=== PATIENT | female | born 1990 | race Caucasian/White ===

== ENCOUNTER 2016-07-30 06:57 | Inpatient (IN) | payer OTHER ==
[2016-07-30] VITALS (61 sets, daily range): BP systolic 101–124; BP diastolic 66–86
[~2016-07-30] VITALS: Ht 167.6 cm; Wt 94.8 kg
[~2016-07-30 06:57] MED LIST: CETI10TA20 PO; IBUP-1780 PO; OXYC-202 PO; PREN1TAB76 PO
--- NOTE | 2016-07-30 07:08 | History & Physical ---
History and Physical Date Seen by Provider: Jul 30, 2016 Time Seen by Provider: 07:06 this patient is a 25-year-old A2 white female with an EDC of 6 2217. She had been followed in clinic for polyhydramnios. She is now 38 weeks gestation. She is admitted now for induction of labor secondary to her polyhydramnios. GBS culture done after 35 weeks gestation was negative. Patient denies rupture membranes or bleeding. She does have some issues with air hunger. She has occasional contractions and feels baby moving frequently. Allergies are to iodine causes a rash Medications are vitamins/folic acid Past medical history, past surgical history, obstetric history, family history, and social histories are per the antepartum record HEENT exam is normal Neck is supple no lymphadenopathy no thyromegaly Abdomen is gravid soft nontender nondistended Extremities show no clubbing or cyanosis. There is no Homans sign. There is some pretibial pitting edema that is considered normal. Pelvic exam is pending Lab work is pending Assessment and plan 38 week gestation with polyhydramnios admitted now for Pitocin induction of labor. Risk complications recovery and follow-up and potential for delivery involvement fully discussed. Patient accepts those risks and is ready to proceed. This patient is for vaginal delivery however plans preparations are in place for if needed. 38 week intrauterine with polyhydramnios Allergies and Home Medications Allergies Coded Allergies: iodine (Verified Allergy, Intermediate, RASH FROM TOUCHING FISH, 07/30/15) Home Medications Cetirizine HCl 10 Mg Tablet, 10 MG PO DAILY, (Reported) Ibuprofen 800 Mg Tablet, 800 MG PO Q4H PRN for PAIN, #60 Prescribed by: MOSHE GREY on 08/02/15 1159 Oxycodone HCl/Acetaminophen 1 Each Tablet, 1-2 TAB PO Q4H PRN for PAIN, #60 Prescribed by: MOSHE GREY on 08/02/15 1159 Vit W-Ca,Fe,FA(<1 mg) 1 Each Tablet, 1 EACH PO DAILY, (Reported) MOSHE BARROW MD Jul 30, 2016 7:08 am
[2016-07-30] MEDS: D5 LR IV SOLUTION 1,000 ML IV SCH ×2 (07:30→15:34)
[2016-07-30] MEDS: OXYTOCIN/NORMAL SALINE 500 ML IV SCH (07:30)
[2016-07-30 07:53] LABS: BASOPHILS % (AUTO) 0 % (0-10); EOSINOPHILS # (AUTO) 0.3 10^3/uL (0.0-0.3); EOSINOPHILS % (AUTO) 3 % (0-10); LYMPHOCYTES # (AUTO) 1.2 X 10^3 (1.0-4.0); LYMPHOCYTES % (AUTO) 15 % (12-44); MEAN CORPUSCULAR HEMOGLOBIN 32 PG (25-34); MEAN CORPUSCULAR HGB CONC 35 G/DL (32-36); MEAN CORPUSCULAR VOLUME 91 FL (80-99); MEAN PLATELET VOLUME 10.9 FL (7.4-10.4); MONOCYTES # (AUTO) 0.7 X 10^3 (0.0-1.0); MONOCYTES % (AUTO) 9 % (0-12); NEUTROPHILS # (AUTO) 5.9 X 10^3 (1.8-7.8); NEUTROPHILS % (AUTO) 73 % (42-75); PLATELET COUNT 192 10^3/uL (130-400); RED BLOOD COUNT 4.35 10^6/uL (4.35-5.85); WHITE BLOOD COUNT 8.1 10^3/uL (4.3-11.0)
[2016-07-30] MEDS ORDERED: LACTATED RINGERS 1,000 ML IV ONE ×3 (13:01→21:21)
[2016-07-30] MEDS ORDERED: SUFENTA 0.6MCG/ML BUPIVA 0.125 100 ML ONE (13:06)
[2016-07-30] MEDS ORDERED: BUPIVACAINE 0.25% 30 ML (SENSORCAINE) VIAL ONE ×2 (13:41→21:33)
[2016-07-30] MEDS ORDERED: LIDOCAINE PF 2% 10 ML (XYLOCAINE) AMP ONE ×2 (13:41→21:33)
[2016-07-30] MEDS ORDERED: fentaNYL INJECTION 100 MCG/2 ML AMP ONE ×2 (13:41→21:33)
[2016-07-30] MEDS ORDERED: METOCLOPRAMIDE INJ 10 MG/2 ML (REGLAN) IV PRN (14:30)
[2016-07-30] MEDS ORDERED: NALOXONE 0.4 MG/ML 1 ML (NARCAN) VIAL IV PRN ×2 (14:30)
[2016-07-30] MEDS ORDERED: diphenhydrAMINE 50 MG/ML INJ (BENADRYL) IV PRN (14:30)
[2016-07-30] MEDS ORDERED: EPIDURAL (SUFENTA 0.6MCG/ML BUPIVA 0.125%) 100 ML BAG EPI SCH (14:30)
[2016-07-30] MEDS ORDERED: ONDANSETRON 4 MG/2 ML (SDV) Z0FRAN IV PRN (14:30)
[2016-07-30] MEDS ORDERED: OXYTOCIN/NORMAL SALINE 500 ML IV SCH (21:20)
--- NOTE | 2016-07-30 21:25 | Progress Note-Pre Operative ---
Pre-Operative Progress Note H&P Reviewed The H&P was reviewed, patient examined and no changes noted. Date Seen by Provider: Jul 30, 2016 Time Seen by Provider: 21:25 Date H&P Reviewed: Jul 30, 2016 Time H&P Reviewed: 21:25 Pre-Operative Diagnosis: T IUPIAL/CPD/nonreassuring heart rate pattern MOSHE BARROW MD Jul 30, 2016 9:25 pm
[2016-07-30] MEDS ORDERED: D5 LR IV SOLUTION 1,000 ML IV ONE (21:28)
--- NOTE | 2016-07-30 21:29 | Progress Note-Standard ---
Standard Progress Note Progress Notes/Assess & Plan Date Seen by Provider: Jul 30, 2016 Time Seen by Provider: 21:26 Progress/Assessment & Plan patient has been laboring since a.m. on Pitocin. Pitocin is at 38 mU/m. She had progressed to slowly to 5 cm Steve now for between 2 and 3 hours. The presenting part is at the -1 to -2 station and has showed little descent throughout the day. The presenting part is resting on the pelvic inlet. There is no pressure on the cervix itself. There is significant notable pressure on the bladder and pubic bone with contractions. The fetus began showing deep variable D cells. The Pitocin was turned off and the fetuses heart rate recovered. Recheck of the cervix shows a patient is around 5 cm there is some edema now in the vagina and cervix. Again there is been no significant descent since this morning. She edges made to forego further attempts at induction with Pitocin in favor of proceeding with a delivery. The patient understands that with her lack of progress and the heart rate pattern showing indications of compromise she accepts and agrees with the plan to proceed with a delivery. Surgical risk complication recovering follow-up all been discussed and she has had all of her questions answered. Vital Signs Date Time Temp Pulse Resp B/P (MAP) Pulse Ox O2 Delivery O2 Flow Rate FiO2 07/30/16 19:20 77 18 116/80 99 07/30/16 19:05 77 18 115/85 98 07/30/16 18:50 82 18 106/74 98 07/30/16 18:35 71 20 114/77 98 07/30/16 18:20 76 20 115/73 98 07/30/16 18:05 85 20 108/78 99 07/30/16 17:55 73 18 120/73 96 07/30/16 17:45 76 18 124/67 98 07/30/16 17:35 72 18 115/76 99 07/30/16 17:25 72 18 114/73 97 07/30/16 17:05 75 18 113/74 97 07/30/16 16:45 76 18 111/74 99 07/30/16 16:30 75 18 101/68 97 07/30/16 16:15 78 18 106/75 96 07/30/16 16:00 69 18 110/66 96 07/30/16 15:45 69 18 110/75 98 07/30/16 15:30 83 18 114/72 99 07/30/16 15:15 99.3 81 18 107/69 99 07/30/16 15:00 77 18 111/73 99 07/30/16 14:50 85 16 108/73 99 07/30/16 14:45 85 16 110/71 98 07/30/16 14:40 85 16 109/76 98 07/30/16 14:35 87 16 119/74 100 07/30/16 14:30 85 16 108/76 100 07/30/16 14:25 85 18 121/76 07/30/16 14:15 86 18 118/82 07/30/16 14:10 91 18 124/86 07/30/16 13:55 87 18 120/84 07/30/16 13:40 75 18 112/77 07/30/16 13:25 76 18 115/75 07/30/16 13:10 78 18 115/77 07/30/16 12:55 80 18 108/73 07/30/16 12:40 80 18 110/71 07/30/16 12:25 80 18 110/71 07/30/16 12:10 72 18 111/78 07/30/16 11:55 83 18 116/77 07/30/16 11:40 82 18 114/75 07/30/16 11:25 75 18 114/76 07/30/16 11:10 69 20 112/82 07/30/16 10:55 81 18 113/66 07/30/16 10:40 77 18 121/76 07/30/16 10:25 75 18 116/76 07/30/16 10:10 74 18 113/72 07/30/16 09:55 78 18 111/76 07/30/16 09:40 75 20 107/79 07/30/16 09:25 75 20 107/79 07/30/16 09:10 77 20 122/70 07/30/16 08:55 75 20 119/77 07/30/16 08:40 75 20 119/77 17 08:25 75 20 120/82 17 08:10 94 20 117/83 07/30/16 07:55 77 20 111/76 07/30/16 07:10 80 20 122/86 Assessment and plan term in labor with failure to progress/CPD/ polyhydramnios nonreassuring heart rate pattern. Surgical crews and anesthesia have been notified of transverse delivery. Pitocin was turned off allowing uterus to rest in the interim MOSHE BARROW MD Jul 30, 2016 9:29 pm
[2016-07-30] MEDS ORDERED: FAMOTIDINE 20MG/2ML IV (PEPCID) IV ONE (21:30)
[2016-07-30] MEDS ORDERED: ceFAZolin INJECTION 2,000 MG in NS (IVPB) 50 ML IV ONE (21:30)
[2016-07-30] MEDS ORDERED: PROMETHAZINE INJ 25 MG/ML (PHENERGAN) AMP IM PRN (21:30)
[2016-07-30] MEDS ORDERED: MEASLES,MUMPS,RUBELLA 1 EA INJ SC ONE (21:30)
[2016-07-30] MEDS ORDERED: TETANUS,DIPTH,PERTUSS P/F (BOOSTRIX) 0.5 ML VIAL IM ONE (21:30)
[2016-07-30] MEDS ORDERED: CITRIC ACID/SOB CIT (BICITRA) 30 ML UDC PO ONE (21:30)
[2016-07-30] MEDS ORDERED: MEPERIDINE (DEMEROL) INJ 100 MG/ML IM PRN (21:30)
[2016-07-30] MEDS ORDERED: METOCLOPRAMIDE INJ 10 MG/2 ML (REGLAN) IV ONE (21:30)
[2016-07-30] MEDS ORDERED: metroNIDAZOLE 500MG/100ML IVPB 100 ML IV ONE (21:30)
[2016-07-30] MEDS ORDERED: CATHETER FLUSH 10 ML SYR IV PRN (21:30)
[2016-07-30] MEDS ORDERED: OXYTOCIN/NORMAL SALINE 1,000 ML IV ONE (21:49)
--- NOTE | 2016-07-30 22:48 | Progress Note-Post Operative ---
Post-Operative Progess Note Surgeon (s)/Bilingual Sales Consultant (s) Surgeon MOSHE BARROW MD Bilingual Sales Consultant: Heather - RN Pre-Operative Diagnosis T IUPIAL/CPD/nonreassuring heart rate pattern Post-Operative Diagnosis same with persistent OP position Procedure & Operative Findings Date of Procedure 07/30/16 Procedure Performed/Findings as above - persistent OP Anesthesia Type Epidural Estimated Blood Loss Estimated blood loss (mL): 800 cc Specimens/Packing Specimens Removed baby - placenta Packing: none MOSHE BARROW MD Jul 30, 2016 10:48 pm
[2016-07-31] VITALS: BP 117/78
[2016-07-31] MEDS: KETOROLAC 30 MG/ML VIAL IVP SCH ×4 (00:17→18:56)
[2016-07-31 04:00] VITALS: BP 116/79
--- NOTE | 2016-07-31 07:00 | OPERATIVE REPORT ---
DATE OF SERVICE: 07/30/2016 PREOPERATIVE DIAGNOSES: Failure to progress in labor, cephalopelvic disproportion, nonreassuring heart rate pattern and polyhydramnios. POSTOPERATIVE DIAGNOSES: Failure to progress in labor, cephalopelvic disproportion, nonreassuring heart rate pattern and polyhydramnios with persistent occiput posterior position. OPERATIVE PROCEDURE: Primary low-transverse delivery with viable male with Apgars of 7 and 8 at 1 and 5 minutes respectively, weight was 6 pounds 13 ounces, time of 2212 and a cord arterial blood gas of 7.3. OPERATIVE DESCRIPTION: With the patient in the supine position under satisfactory epidural anesthesia, she was prepped and draped in the usual fashion for abdominal surgery. Kruger catheter had been placed in the urinary bladder during labor that was left to dependent drainage. A Pfannenstiel incision was made through the skin with a scalpel. The patient's abdomen was then entered in the usual manner. Bladder retractor placed in position and a clean scalpel used to make a 4 cm hysterotomy incision transversely across the lower uterine segment that was extended by blunt dissection as well. Membranes were ruptured in the process releasing a small amount of clear fluid. The incision was extended bluntly and then Heaton forceps were applied to facilitate the delivery of a viable male infant via the uterine incision. The brow was above the pelvic brim. Again the position was straight OP. Heaton forceps were applied to facilitate the delivery. The delivery was atraumatic. The infant was bulb suctioned on delivery of the head and again on completion of the delivery. The umbilical cord was doubly clamped and cut and the passed to the pediatric nurse in attendance for the delivery. Cord bloods were obtained including the arterial blood gas. The placenta was then delivered spontaneously Rashid. It was normal with 3-vessel cord. The uterus at this point was exteriorized and then compressed to control bleeding. While the placenta was suctioned removing about one-eighth of the placenta and a portion of umbilical cord for a permanent section for pathology as the patient had requested to have a placenta return to her otherwise. Attention was then turned back to the uterus. The interior of the uterus was wiped clean with a wet laparotomy sponge. The uterine incision was closed with a running lock suture of 2-0 Vicryl. Two additional sutures of [id number] 2-0 Vicryl were placed to affect complete hemostasis. With hemostasis complete, the uterus was returned to the abdominal cavity. The uterus was a heart shaped uterus with a bit of a septum. It was quite wide and bulky. It was returned to the abdominal cavity without incident and then the abdominal cavity was cleaned of all blood clot and debris. With sponge and needle counts correct and hemostasis assured at this point, the anterior peritoneum was closed with a running suture of 2-0 Vicryl. The rectus muscles were closed with that suture as well. The rectus fascia was closed with 2-0 Vicryl. The subcutaneous tissue was closed with 2-0 Vicryl and then the skin was stapled. Sponge and needle counts were correct at the end of the procedure. Estimated blood loss for procedure was around 800 mL. The patient tolerated the procedure well and was transferred to the recovery room in stable condition. The infant had been taken stable to the full-term nursery under the care of the pediatric nurse. Job ID: [id number] DocumentID: [id number] Dictated Date: 07/30/2016 22:45:45 Rn Er Date: 07/31/2016 04:26:48 Dictated By: MOSHE BARROW MD MTDD
--- NOTE | 2016-07-31 07:12 | Progress Note-Standard ---
Standard Progress Note Progress Notes/Assess & Plan Date Seen by Provider: Jul 31, 2016 Time Seen by Provider: 07:10 Progress/Assessment & Plan patient has been laboring since a.m. on Pitocin. Pitocin is at 38 mU/m. She had progressed to slowly to 5 cm Steve now for between 2 and 3 hours. The presenting part is at the -1 to -2 station and has showed little descent throughout the day. The presenting part is resting on the pelvic inlet. There is no pressure on the cervix itself. There is significant notable pressure on the bladder and pubic bone with contractions. The fetus began showing deep variable D cells. The Pitocin was turned off and the fetuses heart rate recovered. Recheck of the cervix shows a patient is around 5 cm there is some edema now in the vagina and cervix. Again there is been no significant descent since this morning. She edges made to forego further attempts at induction with Pitocin in favor of proceeding with a delivery. The patient understands that with her lack of progress and the heart rate pattern showing indications of compromise she accepts and agrees with the plan to proceed with a delivery. Surgical risk complication recovering follow-up all been discussed and she has had all of her questions answered. Vital Signs Date Time Temp Pulse Resp B/P (MAP) Pulse Ox O2 Delivery O2 Flow Rate FiO2 07/30/16 19:20 77 18 116/80 99 07/30/16 19:05 77 18 115/85 98 07/30/16 18:50 82 18 106/74 98 07/30/16 18:35 71 20 114/77 98 07/30/16 18:20 76 20 115/73 98 07/30/16 18:05 85 20 108/78 99 07/30/16 17:55 73 18 120/73 96 07/30/16 17:45 76 18 124/67 98 07/30/16 17:35 72 18 115/76 99 07/30/16 17:25 72 18 114/73 97 07/30/16 17:05 75 18 113/74 97 07/30/16 16:45 76 18 111/74 99 07/30/16 16:30 75 18 101/68 97 07/30/16 16:15 78 18 106/75 96 07/30/16 16:00 69 18 110/66 96 07/30/16 15:45 69 18 110/75 98 07/30/16 15:30 83 18 114/72 99 07/30/16 15:15 99.3 81 18 107/69 99 07/30/16 15:00 77 18 111/73 99 07/30/16 14:50 85 16 108/73 99 07/30/16 14:45 85 16 110/71 98 07/30/16 14:40 85 16 109/76 98 07/30/16 14:35 87 16 119/74 100 07/30/16 14:30 85 16 108/76 100 07/30/16 14:25 85 18 121/76 07/30/16 14:15 86 18 118/82 07/30/16 14:10 91 18 124/86 07/30/16 13:55 87 18 120/84 07/30/16 13:40 75 18 112/77 07/30/16 13:25 76 18 115/75 07/30/16 13:10 78 18 115/77 07/30/16 12:55 80 18 108/73 07/30/16 12:40 80 18 110/71 07/30/16 12:25 80 18 110/71 07/30/16 12:10 72 18 111/78 07/30/16 11:55 83 18 116/77 07/30/16 11:40 82 18 114/75 07/30/16 11:25 75 18 114/76 07/30/16 11:10 69 20 112/82 07/30/16 10:55 81 18 113/66 07/30/16 10:40 77 18 121/76 07/30/16 10:25 75 18 116/76 07/30/16 10:10 74 18 113/72 07/30/16 09:55 78 18 111/76 07/30/16 09:40 75 20 107/79 07/30/16 09:25 75 20 107/79 07/30/16 09:10 77 20 122/70 07/30/16 08:55 75 20 119/77 07/30/16 08:40 75 20 119/77 17 08:25 75 20 120/82 17 08:10 94 20 117/83 07/30/16 07:55 77 20 111/76 07/30/16 07:10 80 20 122/86 Assessment and plan term in labor with failure to progress/CPD/ polyhydramnios nonreassuring heart rate pattern. Surgical crews and anesthesia have been notified of transverse delivery. Pitocin was turned off allowing uterus to rest in the interim July 31, 2016 Patient is without complaint. She is ambulating, voiding, total bilirubin, denies chest pain, denies shortness of breath, denies headache, denies nausea vomiting, patient has good pain control. Vital Signs Date Time Temp Pulse Resp B/P (MAP) Pulse Ox O2 Delivery O2 Flow Rate FiO2 07/31/16 04:00 97.5 83 18 116/79 98 07/31/16 00:00 99.5 89 18 117/78 99 07/30/16 21:35 90 20 116/84 98 07/30/16 21:20 136 20 103/69 97 07/30/16 20:50 77 20 108/74 99 07/30/16 20:35 86 20 109/73 96 07/30/16 20:20 85 20 118/84 97 07/30/16 20:05 75 20 113/75 98 07/30/16 19:50 83 20 114/78 99 07/30/16 19:35 99.3 78 20 110/75 97 07/30/16 19:20 77 18 116/80 99 07/30/16 19:05 77 18 115/85 98 07/30/16 18:50 82 18 106/74 98 07/30/16 18:35 71 20 114/77 98 07/30/16 18:20 76 20 115/73 98 07/30/16 18:05 85 20 108/78 99 07/30/16 17:55 73 18 120/73 96 07/30/16 17:45 76 18 124/67 98 07/30/16 17:35 72 18 115/76 99 07/30/16 17:25 72 18 114/73 97 07/30/16 17:05 75 18 113/74 97 07/30/16 16:45 76 18 111/74 99 07/30/16 16:30 75 18 101/68 97 07/30/16 16:15 78 18 106/75 96 07/30/16 16:00 69 18 110/66 96 07/30/16 15:45 69 18 110/75 98 07/30/16 15:30 83 18 114/72 99 07/30/16 15:15 99.3 81 18 107/69 99 07/30/16 15:00 77 18 111/73 99 07/30/16 14:50 85 16 108/73 99 07/30/16 14:45 85 16 110/71 98 07/30/16 14:40 85 16 109/76 98 07/30/16 14:35 87 16 119/74 100 07/30/16 14:30 85 16 108/76 100 07/30/16 14:25 85 18 121/76 07/30/16 14:15 86 18 118/82 07/30/16 14:10 91 18 124/86 07/30/16 13:55 87 18 120/84 07/30/16 13:40 75 18 112/77 07/30/16 13:25 76 18 115/75 07/30/16 13:10 78 18 115/77 07/30/16 12:55 80 18 108/73 07/30/16 12:40 80 18 110/71 07/30/16 12:25 80 18 110/71 07/30/16 12:10 72 18 111/78 07/30/16 11:55 83 18 116/77 07/30/16 11:40 82 18 114/75 07/30/16 11:25 75 18 114/76 07/30/16 11:10 69 20 112/82 07/30/16 10:55 81 18 113/66 07/30/16 10:40 77 18 121/76 07/30/16 10:25 75 18 116/76 07/30/16 10:10 74 18 113/72 07/30/16 09:55 78 18 111/76 07/30/16 09:40 75 20 107/79 07/30/16 09:25 75 20 107/79 07/30/16 09:10 77 20 122/70 07/30/16 08:55 75 20 119/77 07/30/16 08:40 75 20 119/77 07/30/16 08:25 75 20 120/82 07/30/16 08:10 94 20 117/83 07/30/16 07:55 77 20 111/76 I & O 07/31/16 07:00 Intake Total 2850 ml Output Total 350 ml Balance 2500 ml vital signs are stable. Patient is afebrile. Fundus is firm below the umbilicus and nontender. Incision is clean dry and intact. Bowel sounds are present. Extremities show no clubbing or cyanosis. There is no Homans sign. There is some pretibial pitting edema that is normal. Assessment and plan postoperative day number 1 status post primary C- section doing well. Plan is for routine convalescence care MOSHE BARROW MD Jul 31, 2016 7:12 am
[2016-07-31] MEDS ORDERED: IBUP-1780 PO (07:24)
[2016-07-31] MEDS ORDERED: OXYC-465 PO (07:24)
[2016-07-31] MEDS ORDERED: DOCU100C37 PO (07:24)
--- NOTE | 2016-07-31 07:25 | Discharge Instructions ---
Discharge Instructions Discharge Medications New, Converted or Re-Newed RX: RX on Chart Patient Instructions Patient Instructions: as directed Return to The Hospital For: as directed Activity & Diet Discharge Diet: No Restrictions Activity as Tolerated: No Orders-Post D/C & Referrals Follow Up Appt: RTC 1 week for incision check. Call to make follow up appt. for patient in 4 weeks. Wound Care: Remove dale, apply benzoin and steri strips. Activity Per routine post instructions. Please call in RX to patient pharmacy. Diet as tolerated Patient may shower or tub bathe as desired. Continue home meds MOSHE BARROW MD Jul 31, 2016 7:25 am
[2016-07-31 08:00] VITALS: BP 120/69
[2016-07-31] MEDS: DOCUSATE SODIUM 100 MG (COLACE) CAP PO SCH ×2 (09:42→20:38)
[2016-07-31] MEDS: oxyCODONE/APAP 10/325MG (PERCOCET 10) TABLET PO PRN ×3 (09:43→20:39)
[2016-07-31 12:30] VITALS: BP 111/76
--- NOTE | 2016-07-31 14:21 | Anesthesia-Regional Post-Op ---
Regional Patient Condition Mental Status: Alert, Oriented x3 Circulation: Same as Pre-Op Headache: Absent Sensation: Full Recovery Motor Block: Absent Post Op Complications Complications None Follow Up Care/Instructions Patient Instructions None needed. Anesthesia/Patient Condition Patient is doing well, no complaints, stable vital signs, no apparent adverse anesthesia problems. KAITLYNN LONG DO Jul 31, 2016 14:21
[2016-07-31] MEDS: SIMETHICONE 80 MG (MYLICON) CHEW PO SCH ×2 (17:00→20:38)
[2016-07-31 20:00] VITALS: BP 105/64
[2016-08-01] MEDS: IBUPROFEN 800 MG (MOTRIN) TAB PO SCH ×3 (00:19→14:08)
[2016-08-01 00:34] VITALS: BP 95/64
[2016-08-01] MEDS: OXYTOCIN/NORMAL SALINE 500 ML IV SCH (07:36)
[2016-08-01] MEDS: D5 LR IV SOLUTION 1,000 ML IV SCH (07:37)
[2016-08-01] MEDS: SIMETHICONE 80 MG (MYLICON) CHEW PO SCH ×2 (07:43→14:09)
[2016-08-01] MEDS: DOCUSATE SODIUM 100 MG (COLACE) CAP PO SCH (07:43)
--- NOTE | 2016-08-01 08:01 | Progress Note-Standard ---
Standard Progress Note Progress Notes/Assess & Plan Date Seen by Provider: Aug 01, 2016 Time Seen by Provider: 08:00 Progress/Assessment & Plan patient has been laboring since a.m. on Pitocin. Pitocin is at 38 mU/m. She had progressed to slowly to 5 cm Steve now for between 2 and 3 hours. The presenting part is at the -1 to -2 station and has showed little descent throughout the day. The presenting part is resting on the pelvic inlet. There is no pressure on the cervix itself. There is significant notable pressure on the bladder and pubic bone with contractions. The fetus began showing deep variable D cells. The Pitocin was turned off and the fetuses heart rate recovered. Recheck of the cervix shows a patient is around 5 cm there is some edema now in the vagina and cervix. Again there is been no significant descent since this morning. She edges made to forego further attempts at induction with Pitocin in favor of proceeding with a delivery. The patient understands that with her lack of progress and the heart rate pattern showing indications of compromise she accepts and agrees with the plan to proceed with a delivery. Surgical risk complication recovering follow-up all been discussed and she has had all of her questions answered. Vital Signs Date Time Temp Pulse Resp B/P (MAP) Pulse Ox O2 Delivery O2 Flow Rate FiO2 07/30/16 19:20 77 18 116/80 99 07/30/16 19:05 77 18 115/85 98 07/30/16 18:50 82 18 106/74 98 07/30/16 18:35 71 20 114/77 98 07/30/16 18:20 76 20 115/73 98 07/30/16 18:05 85 20 108/78 99 07/30/16 17:55 73 18 120/73 96 07/30/16 17:45 76 18 124/67 98 07/30/16 17:35 72 18 115/76 99 07/30/16 17:25 72 18 114/73 97 07/30/16 17:05 75 18 113/74 97 07/30/16 16:45 76 18 111/74 99 07/30/16 16:30 75 18 101/68 97 07/30/16 16:15 78 18 106/75 96 07/30/16 16:00 69 18 110/66 96 07/30/16 15:45 69 18 110/75 98 07/30/16 15:30 83 18 114/72 99 07/30/16 15:15 99.3 81 18 107/69 99 07/30/16 15:00 77 18 111/73 99 07/30/16 14:50 85 16 108/73 99 07/30/16 14:45 85 16 110/71 98 07/30/16 14:40 85 16 109/76 98 07/30/16 14:35 87 16 119/74 100 07/30/16 14:30 85 16 108/76 100 07/30/16 14:25 85 18 121/76 07/30/16 14:15 86 18 118/82 07/30/16 14:10 91 18 124/86 07/30/16 13:55 87 18 120/84 07/30/16 13:40 75 18 112/77 07/30/16 13:25 76 18 115/75 07/30/16 13:10 78 18 115/77 07/30/16 12:55 80 18 108/73 07/30/16 12:40 80 18 110/71 07/30/16 12:25 80 18 110/71 07/30/16 12:10 72 18 111/78 07/30/16 11:55 83 18 116/77 07/30/16 11:40 82 18 114/75 07/30/16 11:25 75 18 114/76 07/30/16 11:10 69 20 112/82 07/30/16 10:55 81 18 113/66 07/30/16 10:40 77 18 121/76 07/30/16 10:25 75 18 116/76 07/30/16 10:10 74 18 113/72 07/30/16 09:55 78 18 111/76 07/30/16 09:40 75 20 107/79 07/30/16 09:25 75 20 107/79 07/30/16 09:10 77 20 122/70 07/30/16 08:55 75 20 119/77 07/30/16 08:40 75 20 119/77 17 08:25 75 20 120/82 17 08:10 94 20 117/83 07/30/16 07:55 77 20 111/76 07/30/16 07:10 80 20 122/86 Assessment and plan term in labor with failure to progress/CPD/ polyhydramnios nonreassuring heart rate pattern. Surgical crews and anesthesia have been notified of transverse delivery. Pitocin was turned off allowing uterus to rest in the interim July 31, 2016 Patient is without complaint. She is ambulating, voiding, total bilirubin, denies chest pain, denies shortness of breath, denies headache, denies nausea vomiting, patient has good pain control. Vital Signs Date Time Temp Pulse Resp B/P (MAP) Pulse Ox O2 Delivery O2 Flow Rate FiO2 07/31/16 04:00 97.5 83 18 116/79 98 07/31/16 00:00 99.5 89 18 117/78 99 07/30/16 21:35 90 20 116/84 98 07/30/16 21:20 136 20 103/69 97 07/30/16 20:50 77 20 108/74 99 07/30/16 20:35 86 20 109/73 96 07/30/16 20:20 85 20 118/84 97 07/30/16 20:05 75 20 113/75 98 07/30/16 19:50 83 20 114/78 99 07/30/16 19:35 99.3 78 20 110/75 97 07/30/16 19:20 77 18 116/80 99 07/30/16 19:05 77 18 115/85 98 07/30/16 18:50 82 18 106/74 98 07/30/16 18:35 71 20 114/77 98 07/30/16 18:20 76 20 115/73 98 07/30/16 18:05 85 20 108/78 99 07/30/16 17:55 73 18 120/73 96 07/30/16 17:45 76 18 124/67 98 07/30/16 17:35 72 18 115/76 99 07/30/16 17:25 72 18 114/73 97 07/30/16 17:05 75 18 113/74 97 07/30/16 16:45 76 18 111/74 99 07/30/16 16:30 75 18 101/68 97 07/30/16 16:15 78 18 106/75 96 07/30/16 16:00 69 18 110/66 96 07/30/16 15:45 69 18 110/75 98 07/30/16 15:30 83 18 114/72 99 07/30/16 15:15 99.3 81 18 107/69 99 07/30/16 15:00 77 18 111/73 99 07/30/16 14:50 85 16 108/73 99 07/30/16 14:45 85 16 110/71 98 07/30/16 14:40 85 16 109/76 98 07/30/16 14:35 87 16 119/74 100 07/30/16 14:30 85 16 108/76 100 07/30/16 14:25 85 18 121/76 07/30/16 14:15 86 18 118/82 07/30/16 14:10 91 18 124/86 07/30/16 13:55 87 18 120/84 07/30/16 13:40 75 18 112/77 07/30/16 13:25 76 18 115/75 07/30/16 13:10 78 18 115/77 07/30/16 12:55 80 18 108/73 07/30/16 12:40 80 18 110/71 07/30/16 12:25 80 18 110/71 07/30/16 12:10 72 18 111/78 07/30/16 11:55 83 18 116/77 07/30/16 11:40 82 18 114/75 07/30/16 11:25 75 18 114/76 07/30/16 11:10 69 20 112/82 07/30/16 10:55 81 18 113/66 07/30/16 10:40 77 18 121/76 07/30/16 10:25 75 18 116/76 07/30/16 10:10 74 18 113/72 07/30/16 09:55 78 18 111/76 07/30/16 09:40 75 20 107/79 07/30/16 09:25 75 20 107/79 07/30/16 09:10 77 20 122/70 07/30/16 08:55 75 20 119/77 07/30/16 08:40 75 20 119/77 07/30/16 08:25 75 20 120/82 07/30/16 08:10 94 20 117/83 07/30/16 07:55 77 20 111/76 I & O 07/31/16 07:00 Intake Total 2850 ml Output Total 350 ml Balance 2500 ml vital signs are stable. Patient is afebrile. Fundus is firm below the umbilicus and nontender. Incision is clean dry and intact. Bowel sounds are present. Extremities show no clubbing or cyanosis. There is no Homans sign. There is some pretibial pitting edema that is normal. Assessment and plan postoperative day number 1 status post primary C- section doing well. Plan is for routine convalescence care August 01, 2016 Patient is without complaint. She is ambulating, voiding, tolerating by mouth well, denies chest pain, denies shortness of breath, denies nausea vomiting, denies headache, has good pain control, and is requesting discharge home. Vital Signs Date Time Temp Pulse Resp B/P (MAP) Pulse Ox O2 Delivery O2 Flow Rate FiO2 08/01/16 00:34 96.8 78 18 95/64 97 Room Air 07/31/16 20:00 96.4 92 17 105/64 99 Room Air 07/31/16 12:30 98.5 72 20 111/76 Room Air I & O 08/01/16 07:00 Intake Total 1000 ml Balance 1000 ml vital signs are stable. Patient is afebrile. Abdomen is benign. The incision is clean dry and intact. Extremities show clubbing cyanosis. There is no Homans sign. There is some pretibial pitting edema that is normal. Assessment and plan postoperative day number 2 status post primary doing well. Plan is for discharge home today Final Diagnosis primary delivery MOSHE BARROW MD Aug 01, 2016 8:01 am
[2016-08-01 08:15] VITALS: BP 102/70
[2016-08-01] MEDS: oxyCODONE/APAP 10/325MG (PERCOCET 10) TABLET PO PRN (12:28)
[2016-08-01 12:32] VITALS: BP 114/78
[2016-08-01] MEDS ORDERED: TETANUS,DIPTH,PERTUSS P/F (BOOSTRIX) 0.5 ML VIAL IM ONE (13:44)
[2016-08-01 18:50] VITALS: BP 111/75
== END 2016-08-01 16:00 | disposition home or self-care (01) | DRG 766 ==
LOC: LDRP 06:57
PROVIDERS: ADMIT Obstetrics & Gynecology; ATTEND Obstetrics & Gynecology
PROC: 10D00Z1 Extraction of Products of Conception, Low, Open Approach (ICD-10-PCS; principal; 2016-07-30 21:52)
DX: O40.3XX0 Polyhydramnios, third trimester, not applicable or unspecified (principal); O76 Abnormality in fetal heart rate and rhythm complicating labor and delivery; O33.9 Maternal care for disproportion, unspecified; Z3A.38 38 weeks gestation of pregnancy; Z37.0 Single live birth; Z23 Encounter for immunization
CPT/HCPCS: 36415; 85025; 86850; 86900; 86901; 90715; 94664

== ENCOUNTER → 2020-06-03 | Outpatient (CLI) | payer BC, OTHER ==
[~2020-06-03] MED LIST changes: -CETI10TA20 PO; +CETI10TA49 PO; +DOCU100C37 PO; -OXYC-202 PO; +OXYC-556 PO; +OXYC1TAB12 PO
== END ==
LOC: LABNPT 12:36
PROVIDERS: ATTEND Obstetrics & Gynecology
DX: R80.9 Proteinuria, unspecified (principal)
CPT/HCPCS: 82570; 84156

== ENCOUNTER 2020-07-09 06:25 | Outpatient (CLI) | payer BC ==
[~2020-07-09] VITALS: Ht 167.7 cm; Wt 95.9 kg
[2020-07-11] MEDS ORDERED: PREN1TAB79 PO (13:13)
== END 2020-07-11 13:15 | disposition home or self-care (01) ==
LOC: PREOP 06:25
PROVIDERS: ATTEND Obstetrics & Gynecology
DX: Z01.818 Encounter for other preprocedural examination (principal)

== ENCOUNTER 2020-07-16 10:13 | Inpatient (IN) | payer BC ==
[2020-07-16] VITALS (10 sets, daily range): BP systolic 95–121; BP diastolic 60–79
[~2020-07-16] VITALS: Ht 167.7 cm; Wt 95.3 kg
[~2020-07-16 10:13] MED LIST changes: +PREN1TAB79 PO
[2020-07-16] MEDS ORDERED: IBUP-1780 PO (10:29)
[2020-07-16] MEDS ORDERED: DOCU-143 PO (10:29)
[2020-07-16] MEDS ORDERED: OXYC1TAB12 PO (10:29)
[2020-07-16] MEDS ORDERED: CATHETER FLUSH 10 ML SYR IV PRN (11:00)
[2020-07-16] MEDS ORDERED: LACTATED RINGERS 1,000 ML IV SCH ×2 (11:10→12:09)
[2020-07-16] MEDS ORDERED: ceFAZolin 2 GM IV Premixed 50 ML IV ONE (12:00)
[2020-07-16] MEDS ORDERED: metroNIDAZOLE 500MG/100ML IVPB 100 ML IV ONE (12:00)
[2020-07-16] MEDS ORDERED: CITRIC ACID/SOB CIT (BICITRA) 30 ML UDC PO ONE (12:14)
[2020-07-16] MEDS ORDERED: METOCLOPRAMIDE INJ 10 MG/2 ML (REGLAN) IV ONE (12:14)
[2020-07-16] MEDS ORDERED: FAMOTIDINE 20MG/2ML IV (PEPCID) IV ONE (12:14)
[2020-07-16] MEDS: OXYTOCIN PRE-MIX DRIP 500 ML IV SCH ×2 (13:27→17:07)
[2020-07-16] MEDS ORDERED: TETANUS,DIPTH,PERTUSS P/F (BOOSTRIX) 0.5 ML VIAL IM ONE (14:45)
[2020-07-16] MEDS ORDERED: oxyCODONE/APAP 10/325MG (PERCOCET 10) TABLET PO PRN (14:45)
[2020-07-16] MEDS ORDERED: fentaNYL INJ 100 MCG/2 ML AMP IVP PRN (14:45)
[2020-07-16] MEDS ORDERED: ONDANSETRON 4 MG/2 ML (SDV) Z0FRAN IVP PRN (14:45)
[2020-07-16] MEDS ORDERED: MEASLES,MUMPS,RUBELLA 1 EA INJ SC ONE (14:45)
[2020-07-16] MEDS ORDERED: D5 LR IV SOLUTION 1,000 ML IV SCH (14:45)
--- NOTE | 2020-07-16 15:34 | OPERATIVE REPORT ---
DATE OF SERVICE: 07/16/2020 PREOPERATIVE DIAGNOSES. Term at 38 weeks' gestation with previous and polyhydramnios. POSTOPERATIVE DIAGNOSES: Term at 38 weeks' gestation with previous and polyhydramnios. OPERATIVE PROCEDURE: Repeat low transverse delivery of a viable female infant with Apgars that are pending, weight of 7 pounds 5 ounces. Cord blood pH of 7.34 and a time of 12:44. OPERATIVE DESCRIPTION: With the patient in supine position under satisfactory spinal analgesia, she was prepped and draped in the usual fashion for abdominal surgery for . Kruger catheter was placed in the urinary bladder and left to dependent drainage. A Pfannenstiel incision was made through the skin with a scalpel by removing the patient's previous Pfannenstiel incisional scar. The abdomen was entered in the usual manner. Bladder retractor placed in position. Bladder was somewhat adherent to the anterior lower uterine segment that was dissected free and then a hysterotomy incision was made transversely across the lower uterine segment with a scalpel, releasing copious clear fluid on hysterotomy. An incision was extended bluntly and then Heaton forceps were applied to facilitate delivery of a vigorous viable female infant. Infant had stats and numbers as noted above. The infant was bulb suctioned on delivery of the head and again on completion of delivery. Umbilical cord was doubly clamped and cut and the passed to the pediatric nurse in attendance for delivery. Cord bloods were obtained. Placenta delivered spontaneously Rashid. It was normal with a 3-vessel cord. The uterus was exteriorized and interior wiped clean with a wet laparotomy sponge. Uterine incision closed with a running locked suture of 2-0 Vicryl. Hemostasis was complete. The uterus was viktor nicely. It was returned to the abdominal cavity. All blood clot and debris were removed from the abdominal cavity. With sponge and needle counts correct, hemostasis assured. The anterior parietal peritoneum was closed with running suture of 2-0 Vicryl, rectus muscles were closed with that suture as well. The rectus fascia was closed with 2-0 Vicryl, subcutaneous tissue was closed with 2-0 Vicryl and the skin was stapled. Sponge and needle counts were correct on completion of procedure. Estimated blood loss was around 500 mL. The patient tolerated the delivery well and was transferred to recovery room in stable condition. The baby had remained at the bedside warmer under the care of the pediatric nurse. Job ID: [id number] DocumentID: [id number] Dictated Date: 07/16/2020 13:03:49 [employer] Date: 07/16/2020 15:34:15 Dictated By: MOSHE BARROW MD
[2020-07-16] MEDS: KETOROLAC 30 MG/ML VIAL IVP SCH ×2 (16:43→22:22)
[2020-07-16] MEDS: DOCUSATE SODIUM 100 MG (COLACE) CAP PO SCH (20:07)
[2020-07-16] MEDS ORDERED: DOCUSATE SODIUM 100 MG (COLACE) CAP PO SCH (21:00)
[2020-07-17 00:44] VITALS: BP 106/57
[2020-07-17] MEDS: KETOROLAC 30 MG/ML VIAL IVP SCH (04:09)
[2020-07-17 04:23] VITALS: BP 116/76
--- NOTE | 2020-07-17 07:58 | Progress Note ---
Standard Progress Note Progress Notes/Assess & Plan Date Seen by a Provider: July 17, 2020 Time Seen by a Provider: 07:57 Progress/Assessment & Plan This patient is without complaint. She is ambulating, voiding, tolerating oral intake well and has good pain control. Vital Signs Date Time Temp Pulse Resp B/P (MAP) Pulse Ox O2 Delivery O2 Flow Rate FiO2 07/17/20 04:23 36.4 78 18 116/76 (89) Room Air 07/17/20 00:44 36.5 77 18 106/57 (73) 97 Room Air 07/16/20 20:34 36.6 73 18 117/70 (86) 97 Room Air 07/16/20 19:11 Room Air 07/16/20 17:00 37.1 78 18 106/60 (75) 97 Room Air 07/16/20 15:15 36.4 76 18 104/68 (80) 99 Room Air 07/16/20 14:04 Room Air 07/16/20 14:04 36.4 16 107/78 (88) 100 Room Air 07/16/20 13:49 Room Air 07/16/20 13:49 36.5 16 107/77 (87) 100 Room Air 07/16/20 13:34 Room Air 07/16/20 13:34 36.8 16 107/79 (88) 100 Room Air 07/16/20 13:19 Room Air 07/16/20 13:19 36.8 16 101/68 (79) 99 Room Air 07/16/20 13:04 36.3 16 95/61 (72) 100 Room Air 07/16/20 13:04 Room Air 07/16/20 11:30 36.5 84 18 99 Room Air 07/16/20 10:29 36.5 84 18 121/76 (91) 99 Room Air I & O 07/17/20 07:00 Intake Total 5450 ml Output Total 1300 ml Balance 4150 ml Vital signs are stable. Patient is afebrile. Fundus is firm below the umbilicus and nontender. The surgical incision is clean dry and intact. Extremities show no clubbing or cyanosis. There is no Homans' sign. Assessment and plan Postoperative day #1 status post repeat delivery at 38 weeks gestation. Patient doing well I have routine convalescent care MOSHE BARROW MD July 17, 2020 07:58
[2020-07-17 08:15] VITALS: BP 101/69
[2020-07-17] MEDS: DOCUSATE SODIUM 100 MG (COLACE) CAP PO SCH ×2 (08:30→21:50)
[2020-07-17] MEDS: IBUPROFEN 800 MG (MOTRIN) TAB PO SCH ×3 (09:37→21:50)
[2020-07-17 12:15] VITALS: BP 100/64
[2020-07-17 16:45] VITALS: BP 103/65
[2020-07-17 21:50] VITALS: BP 109/67
[2020-07-18 04:11] VITALS: BP 100/61
[2020-07-18] MEDS: IBUPROFEN 800 MG (MOTRIN) TAB PO SCH ×2 (04:11→12:26)
[2020-07-18 08:51] VITALS: BP 102/62
[2020-07-18] MEDS: DOCUSATE SODIUM 100 MG (COLACE) CAP PO SCH (08:56)
--- NOTE | 2020-07-18 09:42 | Progress Note ---
Standard Progress Note Progress Notes/Assess & Plan Date Seen by a Provider: July 18, 2020 Time Seen by a Provider: 09:41 Progress/Assessment & Plan This patient is without complaint. She is ambulating, voiding, tolerating oral intake well and has good pain control. Vital Signs Date Time Temp Pulse Resp B/P (MAP) Pulse Ox O2 Delivery O2 Flow Rate FiO2 07/17/20 04:23 36.4 78 18 116/76 (89) Room Air 07/17/20 00:44 36.5 77 18 106/57 (73) 97 Room Air 07/16/20 20:34 36.6 73 18 117/70 (86) 97 Room Air 07/16/20 19:11 Room Air 07/16/20 17:00 37.1 78 18 106/60 (75) 97 Room Air 07/16/20 15:15 36.4 76 18 104/68 (80) 99 Room Air 07/16/20 14:04 Room Air 07/16/20 14:04 36.4 16 107/78 (88) 100 Room Air 07/16/20 13:49 Room Air 07/16/20 13:49 36.5 16 107/77 (87) 100 Room Air 07/16/20 13:34 Room Air 07/16/20 13:34 36.8 16 107/79 (88) 100 Room Air 07/16/20 13:19 Room Air 07/16/20 13:19 36.8 16 101/68 (79) 99 Room Air 07/16/20 13:04 36.3 16 95/61 (72) 100 Room Air 07/16/20 13:04 Room Air 07/16/20 11:30 36.5 84 18 99 Room Air 07/16/20 10:29 36.5 84 18 121/76 (91) 99 Room Air I & O 07/17/20 07:00 Intake Total 5450 ml Output Total 1300 ml Balance 4150 ml Vital signs are stable. Patient is afebrile. Fundus is firm below the umbilicus and nontender. The surgical incision is clean dry and intact. Extremities show no clubbing or cyanosis. There is no Homans' sign. Assessment and plan Postoperative day #1 status post repeat delivery at 38 weeks gestation. Patient doing well I have routine convalescent care July 18, 2020 This patient is compliant. She is ambulating, voiding, tolerating oral intake well and has good pain control. Patient is requesting discharge home. Vital Signs Date Time Temp Pulse Resp B/P (MAP) Pulse Ox O2 Delivery O2 Flow Rate FiO2 07/18/20 08:51 37.0 88 18 102/62 (75) 98 Room Air 07/18/20 04:11 36.6 76 18 100/61 (74) 98 Room Air 07/17/20 21:50 36.8 77 18 109/67 (81) 98 Room Air 07/17/20 16:45 36.4 88 18 103/65 (78) 97 Room Air 07/17/20 12:15 36.6 83 18 100/64 (76) 98 Room Air I & O 07/18/20 07:00 Intake Total 3200 ml Output Total 1150 ml Balance 2050 ml Vital signs are stable. Patient is afebrile. The abdomen is benign. The surgical incision is clean dry and intact. The f undus is firm below the umbilicus. Extremities show no clubbing or cyanosis. There is no Homans' sign. Assessment and plan Postoperative day #2 status post repeat delivery at 38 weeks gestation. Minus for discharge home with follow-up in clinic Final Diagnosis 38-week repeat delivery MOSHE BARROW MD July 18, 2020 09:42
[2020-07-18] MEDS ORDERED: IBUP-1780 PO (12:25)
[2020-07-18] MEDS ORDERED: DOCU-143 PO (12:25)
--- NOTE | 2020-07-18 12:26 | Discharge Inst-Surgical ---
Discharge Inst-Surgical Depart Medication/Instructions New, Converted or Re-Newed RX: RX on Chart Consults/Follow Up Patient Instructions: as directed Orders & Referrals Follow Up Appt: RTC 1 week for incision check. Call to make follow up appt. for patient in 4 weeks. Wound Care: Remove dale, apply benzoin and steri strips. Activity Per routine post instructions. Please call in RX to patient pharmacy. Diet as tolerated Patient may shower or tub bathe as desired. Continue home meds Activity Activity as Tolerated: No Diet Discharge Diet: No Restrictions MOSHE BARROW MD July 18, 2020 12:26
[2020-07-18 12:35] VITALS: BP 102/62
== END 2020-07-18 13:10 | disposition home or self-care (01) | DRG 788 ==
LOC: LDRP 10:13
PROVIDERS: ADMIT Obstetrics & Gynecology; ATTEND Obstetrics & Gynecology
PROC: 10D00Z1 Extraction of Products of Conception, Low, Open Approach (ICD-10-PCS; principal; 2020-07-16 12:26)
DX: O34.211 Maternal care for low transverse scar from previous cesarean delivery (principal); Z3A.38 38 weeks gestation of pregnancy; Z37.0 Single live birth; O40.3XX0 Polyhydramnios, third trimester, not applicable or unspecified
CPT/HCPCS: 94664

== ENCOUNTER 2021-05-09 16:27 | Emergency (ER) | payer BC ==
[~2021-05-09] VITALS: Ht 167.7 cm; Wt 80.3 kg
[~2021-05-09 16:27] MED LIST changes: +DOCU-143 PO
--- NOTE | 2021-05-09 16:42 | ED General ---
General Stated Complaint: ABDOMINAL PAIN Source of Information: Patient Exam Limitations: No Limitations History of Present Illness Date Seen by Provider: May 09, 2021 Time Seen by Provider: 16:40 Initial Comments To ER by private vehicle from home with reports of right-sided periumbilical abdominal pain. This began as diffuse abdominal pain yesterday. She then saw a nurse practitioner in [place] today and had a negative test and a normal urinalysis and was referred to the emergency room. She last ate at about 1 PM but stopped eating early because it seemed to be making the pain worse. No nausea no vomiting. No bowel changes no dysuria. No history of any abdominal surgery. Timing/Duration: 1-2 Days Severity: Moderate Associated Systoms: Other Allergies and Home Medications Allergies Coded Allergies: iodine (Verified Allergy, Intermediate, RASH FROM TOUCHING FISH, 07/30/15) Patient Home Medication List Home Medication List Reviewed: Yes Cetirizine HCl (Zyrtec) 10 Mg Tablet, 10 MG PO DAILY, (Reported) Entered as Reported by: MADAY TANNER on 07/30/15 1337 Docusate Sodium (Colace) 100 Mg Capsule, 100 MG PO BID Prescribed by: MOSHE GREY on 07/18/20 1225 Ibuprofen (Ibuprofen) 800 Mg Tablet, 800 MG PO Q6H PRN for PAIN Prescribed by: MOSHE GREY on 07/18/20 1225 Oxycodone HCl/Acetaminophen (Percocet 10-325 mg Tablet) 1 Each Tablet, 1 TAB PO Q8H PRN for PAIN-MODERATE Prescribed by: MOSHE GREY on 07/16/20 1029 Vit W-Ca,Fe,FA(<1 mg) ( Vitamins) 1 Each Tablet, 1 EACH PO DAILY, (Reported) Entered as Reported by: SANDI RIVERO on 07/11/20 1313 Review of Systems Review of Systems Constitutional: see HPI EENTM: see HPI Respiratory: no symptoms reported Cardiovascular: no symptoms reported Gastrointestinal: abdominal pain Genitourinary: no symptoms reported Musculoskeletal: no symptoms reported Skin: no symptoms reported Psychiatric/Neurological: No Symptoms Reported Hematologic/Lymphatic: No Symptoms Reported Past Grinhpt-Knwtex-Leiwea Hx Immunizations Up To Date Tetanus Booster (TDap): Unknown PED Vaccines UTD: Yes Seasonal Allergies Seasonal Allergies: No Past Medical History Surgeries: Yes Section Respiratory: No Cardiac: No Neurological: No Reproductive Disorders: Yes (UTERINE SEPTUM) Female Reproductive Disorders: Denies HIV/AIDS: No Genitourinary: No Gastrointestinal: Yes Gastroesophageal Reflux Musculoskeletal: No Endocrine: No HEENT: No Loss of Vision: Denies Hearing Impairment: Denies Cancer: No Psychosocial: No Integumentary: No Blood Disorders: No Adverse Reaction/Blood Tranf: No Physical Exam Vital Signs Vital Signs - First Documented 05/09/21 16:36 Temp 36.8 Pulse 91 Resp 20 B/P (MAP) 110/74 (86) Pulse Ox 99 O2 Delivery Room Air Capillary Refill : Height, Weight, BMI Height: 5'6.00" Weight: 209lbs. 0.0oz. 94.282043fo; 33.88 BMI Method: General Appearance: No Apparent Distress, WD/WN Eyes: Bilateral Eye Normal Inspection, Bilateral Eye PERRL, Bilateral Eye EOMI Neck: Full Range of Motion, Normal Inspection Respiratory: No Accessory Muscle Use, No Respiratory Distress Cardiovascular: Regular Rate, Rhythm Gastrointestinal: Normal Bowel Sounds, Soft, Tenderness Extremity: Normal Capillary Refill, Normal Inspection Neurologic/Psychiatric: Alert, Oriented x3 Skin: Normal Color, Warm/Dry Progress/Results/Core Measures Suspected Sepsis SIRS Temperature: Pulse: Respiratory Rate: Laboratory Tests 05/09/21 16:40: White Blood Count 9.5 Blood Pressure / Mean: Laboratory Tests 05/09/21 16:40: Creatinine 0.73, Platelet Count 244, Total Bilirubin 1.3H Results/Orders Lab Results Laboratory Tests Test 05/09/21 16:40 05/09/21 17:10 Range/Units White Blood Count 9.5 4.3-11.0 10^3/uL Red Blood Count 4.37 3.80-5.11 10^6/uL Hemoglobin 13.5 11.5-16.0 g/dL Hematocrit 39 35-52 % Mean Corpuscular Volume 90 80-99 fL Mean Corpuscular Hemoglobin 31 25-34 pg Mean Corpuscular Hemoglobin Concent 34 32-36 g/dL Red Cell Distribution Width 12.1 10.0-14.5 % Platelet Count 244 130-400 10^3/uL Mean Platelet Volume 10.1 9.0-12.2 fL Immature Granulocyte % (Auto) 0 % Neutrophils (%) (Auto) 81 H 42-75 % Lymphocytes (%) (Auto) 12 12-44 % Monocytes (%) (Auto) 5 0-12 % Eosinophils (%) (Auto) 1 0-10 % Basophils (%) (Auto) 0 0-10 % Neutrophils # (Auto) 7.7 1.8-7.8 X 10^3 Lymphocytes # (Auto) 1.2 1.0-4.0 X 10^3 Monocytes # (Auto) 0.5 0.0-1.0 X 10^3 Eosinophils # (Auto) 0.1 0.0-0.3 10^3/uL Basophils # (Auto) 0.0 0.0-0.1 10^3/uL Immature Granulocyte # (Auto) 0.0 0.0-0.1 10^3/uL Sodium Level 140 135-145 MMOL/L Potassium Level 3.7 3.6-5.0 MMOL/L Chloride Level 106 98-107 MMOL/L Carbon Dioxide Level 22 21-32 MMOL/L Anion Gap 12 5-14 MMOL/L Blood Urea Nitrogen 13 7-18 MG/DL Creatinine 0.73 0.60-1.30 MG/DL Estimat Glomerular Filtration Rate 114 BUN/Creatinine Ratio 18 Glucose Level 88 70-105 MG/DL Calcium Level 9.4 8.5-10.1 MG/DL Corrected Calcium 9.3 8.5-10.1 MG/DL Total Bilirubin 1.3 H 0.1-1.0 MG/DL Aspartate Amino Transf (AST/SGOT) 15 5-34 U/L Alanine Aminotransferase (ALT/SGPT) 27 0-55 U/L Alkaline Phosphatase 57 40-136 U/L Total Protein 7.2 6.4-8.2 GM/DL Albumin 4.1 3.2-4.5 GM/DL Serum Test, Qualitative NEGATIVE NEGATIVE Urine Color YELLOW Urine Clarity CLEAR Urine pH 7.0 5-9 Urine Specific Huffman 1.020 1.016-1.022 Urine Protein NEGATIVE NEGATIVE Urine Glucose (UA) NEGATIVE NEGATIVE Urine Ketones NEGATIVE NEGATIVE Urine Nitrite NEGATIVE NEGATIVE Urine Bilirubin NEGATIVE NEGATIVE Urine Urobilinogen 1.0 < = 1.0 MG/DL Urine Leukocyte Esterase NEGATIVE NEGATIVE Urine RBC (Auto) NEGATIVE NEGATIVE Urine RBC NONE /HPF Urine WBC RARE /HPF Urine Squamous Epithelial Cells 0-2 /HPF Urine Crystals NONE /LPF Urine Amorphous Sediment MOD STEVEN URATES H /LPF Urine Bacteria NEGATIVE /HPF Urine Casts NONE /LPF Urine Mucus NEGATIVE /LPF Urine Culture Indicated NO My Orders Orders - CECILLE TORRES APRN Cbc With Automated Diff (05/09/21 16:39) Comprehensive Metabolic Panel (05/09/21 16:39) Ua Culture If Indicated (05/09/21 16:39) Ed Iv/Invasive Line Start (05/09/21 16:39) Ct Abd/Pelv W (Appendicitis) (05/09/21 16:39) Ketorolac Injection (Toradol Injection) (05/09/21 16:45) Hcg,Qualitative Serum (05/09/21 17:13) Iohexol Injection (Omnipaque 350 Mg/Ml 1 (05/09/21 17:30) Received Contrast (Hold Metformin- Contr (05/09/21 17:30) Sodium Chloride Flush (Catheter Flush Sy (05/09/21 17:30) Ns (Ivpb) (Sodium Chloride 0.9% Ivpb Bag (05/09/21 17:30) Medications Given in ED Current Medications Medications Dose Ordered Sig/Marta Route Start Time Stop Time Status Last Admin Dose Admin Iohexol 100 ml ONCE ONCE IV 05/09/21 17:30 05/09/21 17:31 DC 05/09/21 17:51 100 ML Ketorolac Tromethamine 15 mg ONCE ONCE IVP 05/09/21 16:45 05/09/21 16:46 DC 05/09/21 17:00 15 MG Sodium Chloride 10 ml NEEDED PRN IV 05/09/21 17:30 05/09/21 17:51 10 ML Sodium Chloride 100 ml ONCE ONCE IV 05/09/21 17:30 05/09/21 17:31 DC 05/09/21 17:51 80 ML Vital Signs/I&O 05/09/21 16:36 Temp 36.8 Pulse 91 Resp 20 B/P (MAP) 110/74 (86) Pulse Ox 99 O2 Delivery Room Air Capillary Refill : Departure Communication (Admissions) NAME: PATRICIA ARMSTRONG MED REC#: [id number] PT STATUS: REG ER : 1990 PHYSICIAN: CECILLE TORRES ASSEMBLER KNIFE ADMIT DATE: 05/09/21/ER Draft Date of Exam:05/09/21 CT ABD/PELV W (APPENDICITIS) EXAMINATION: CT abdomen and pelvis with intravenous contrast. TECHNIQUE: Multiple contiguous axial images were obtained through the abdomen and pelvis after the uneventful administration of intravenous contrast. All CT scans use one or more of the following dose optimizing techniques: automated exposure control, MA and/or KvP adjustment based on patient size and exam type or iterative reconstruction. HISTORY: Right lower quadrant pain. COMPARISON: None available. FINDINGS: Limited views of the lower thorax are unremarkable. The liver is normal without focal lesion. There is no biliary ductal dilation. Gallbladder is normal. Pancreas is normal. Spleen is normal. Adrenal glands are normal. The kidneys are normal. There is no hydronephrosis. Urinary bladder is normal. Bowel is normal in caliber without obstruction or inflammation. The appendix is normal (series 2, image 132. There is a corpus luteum cyst in the right ovary. No free fluid or air. No abdominal or pelvic lymphadenopathy. Aorta is normal in caliber without aneurysm. There are no suspicious osseus lesions. IMPRESSION: No acute abnormality in the abdomen or pelvis. Appendix is normal. Dictated on workstation # [id number] Dict: 05/09/21 1802 Trans: 05/09/21 1812 [facility] [id number] Interpreted by: GINNY FELIZ MD Electronically signed by: Impression Primary Impression: Right sided abdominal pain Disposition: 01 HOME, SELF-CARE Condition: Stable Departure-Patient Inst. Decision time for Depature: 18:26 Referrals: NO,LOCAL PHYSICIAN (PCP) Primary Care Physician Patient Instructions: Abdominal Pain, Adult ED Add. Discharge Instructions: 1. Your lab work is normal and your appendix is normal. You have a small cyst on the right ovary. Follow-up with your doctor next week for recheck. Tylenol and ibuprofen for pain control in the meantime. CECILLE TORRES APRN May 09, 2021 16:42
[2021-05-09] MEDS ORDERED: KETOROLAC 30 MG/ML VIAL IVP ONE (16:45)
[2021-05-09 16:56] LABS: BASOPHILS % (AUTO) 0 % (0-10); EOSINOPHILS # (AUTO) 0.1 10^3/uL (0.0-0.3); EOSINOPHILS % (AUTO) 1 % (0-10); HEMATOCRIT 39 % (35-52); HEMOGLOBIN 13.5 g/dL (11.5-16.0); LYMPHOCYTES # (AUTO) 1.2 X 10^3 (1.0-4.0); LYMPHOCYTES % (AUTO) 12 % (12-44); MEAN CORPUSCULAR HEMOGLOBIN 31 pg (25-34); MEAN CORPUSCULAR HGB CONC 34 g/dL (32-36); MEAN CORPUSCULAR VOLUME 90 fL (80-99); MEAN PLATELET VOLUME 10.1 fL (9.0-12.2); MONOCYTES # (AUTO) 0.5 X 10^3 (0.0-1.0); MONOCYTES % (AUTO) 5 % (0-12); NEUTROPHILS # (AUTO) 7.7 X 10^3 (1.8-7.8); NEUTROPHILS % (AUTO) 81 % (42-75); PLATELET COUNT 244 10^3/uL (130-400); WHITE BLOOD COUNT 9.5 10^3/uL (4.3-11.0)
[2021-05-09 17:03] LABS: ALBUMIN 4.1 GM/DL (3.2-4.5)
[2021-05-09 17:04] LABS: POTASSIUM 3.7 MMOL/L (3.6-5.0)
[2021-05-09 17:05] LABS: CALCIUM 9.4 MG/DL (8.5-10.1)
[2021-05-09 17:06] LABS: TOTAL PROTEIN 7.2 GM/DL (6.4-8.2)
[2021-05-09 17:08] LABS: BILIRUBIN,TOTAL 1.3 MG/DL (0.1-1.0)
[2021-05-09 17:10] LABS: CREATININE SERUM 0.73 MG/DL (0.60-1.30)
[2021-05-09 17:17] LABS: BILIRUBIN,URINE NEGATIVE (NEGATIVE); CLARITY,URINE CLEAR; COLOR,URINE YELLOW; GLUCOSE, URINE (UA) NEGATIVE (NEGATIVE); KETONES,URINE NEGATIVE (NEGATIVE); LEUKOCYTE ESTERASE ,URINE NEGATIVE (NEGATIVE); NITRITE,URINE NEGATIVE (NEGATIVE); PROTEIN,URINE NEGATIVE (NEGATIVE)
[2021-05-09 17:26] LABS: BACTERIA,URINE NEGATIVE /HPF; SQUAMOUS EPITHELIAL CELL,UR 0-2 /HPF; WBC,URINE RARE /HPF
[2021-05-09 17:27] LABS: AMORPHOUS SEDIMENT,UR MOD AMOR URATES /LPF
[2021-05-09] MEDS ORDERED: NS 100 ML (IVPB) BAG IV ONE (17:30)
[2021-05-09] MEDS ORDERED: HOLD METFORMIN - RECEIVED CONTRAST 20 ML VIAL IV SCH (17:30)
[2021-05-09] MEDS ORDERED: IOHEXOL 350 MG/ML 100 ML (OMNIPAQUE 350) VIAL IV ONE (17:30)
[2021-05-09] MEDS ORDERED: CATHETER FLUSH 10 ML SYR IV PRN (17:30)
--- NOTE | 2021-05-09 18:13 | Diagnostic Imaging Report ---
EXAMINATION: CT abdomen and pelvis with intravenous contrast. TECHNIQUE: Multiple contiguous axial images were obtained through the abdomen and pelvis after the uneventful administration of intravenous contrast. All CT scans use one or more of the following dose optimizing techniques: automated exposure control, MA and/or KvP adjustment based on patient size and exam type or iterative reconstruction. HISTORY: Right lower quadrant pain. COMPARISON: None available. FINDINGS: Limited views of the lower thorax are unremarkable. The liver is normal without focal lesion. There is no biliary ductal dilation. Gallbladder is normal. Pancreas is normal. Spleen is normal. Adrenal glands are normal. The kidneys are normal. There is no hydronephrosis. Urinary bladder is normal. Bowel is normal in caliber without obstruction or inflammation. The appendix is normal (series 2, image 132. There is a corpus luteum cyst in the right ovary. No free fluid or air. No abdominal or pelvic lymphadenopathy. Aorta is normal in caliber without aneurysm. There are no suspicious osseus lesions. IMPRESSION: No acute abnormality in the abdomen or pelvis. Appendix is normal. Dictated by: Dictated on workstation # [id number]
[2021-05-09 18:43] VITALS: BP 114/78
== END 2021-05-09 18:43 | disposition home or self-care (01) ==
LOC: EDUNIT# 16:27 → ER 16:28
DX: R10.33 Periumbilical pain (principal); Z32.02 Encounter for pregnancy test, result negative
CPT/HCPCS: 36415; 74177; 80053; 81000; 84703; 85025